=== PATIENT | female | born 1940 | race Caucasian/White ===

== ENCOUNTER → 2020-03-07 | Outpatient (CLI) | payer MEDICARE ==
--- NOTE | 2020-03-07 12:15 | BD ---
EXAMINATION TYPE: Axial Bone Density DATE OF EXAM: 03/07/2020 COMPARISON: 12.13.2013 CLINICAL HISTORY: 79 YR OLD FEMALE....ICD-10 CODE; Z78.0 ASYMPTOMATIC MENOPAUSE Height: 59.3 Weight: 179 FRAX RISK QUESTIONS: NOTHING TO NOTE HERE RISK FACTORS HISTORY OF: Postmenopausal woman: YES AT ABOUT 54 YRS OLD Lost more than 2 inches in height since high school: YES Hyperparathyroidism: NO Adrenal Insufficiency: NO MEDICATIONS: Additional Medications: BP MEDS, CHOLESTEROL MEDS, Additional History: HYPERTENSION, CHOLESTEROL EXAM MEASUREMENTS: Bone mineral densitometry was performed using the [employer] System. Bone mineral density as measured about the Lumbar spine is: ----- L1-L4(G/cm2): 1.283 T Score Values are as follows: ----- L1: 0.2 ----- L2: 0.7 ----- L3: 1.6 ----- L4: 0.7 ----- L1-L4: 0.9 Bone mineral density has: Increased 11.1% since study of: 12.13.2013 Bone mineral density about the R hip (g/cm2): 0.978 Bone mineral density about the L hip (g/cm2): 0.880 T Score values are as follows: -----R Neck: -1.3 -----L Neck: -1.7 -----R Total: -0.2 -----L Total: -1.0 Bone mineral density has: Decreased -4.9% since study of: 12.13.2013 FRAX%s: THERE IS A 12.4% CHANCE FOR A MAJOR OSTEOPOROTIC FX AND A 2.9% FOR HIP.....PROBABILITY FOR FX IN 10 YRS TIME IMPRESSION: Osteopenia (T Score between -2.5 and -1). There is slightly increased risk of fracture and the patient may be considered for treatment. Re-Screen 2-5 years. NOTE: T-SCORE=SD OF THE YOUNG ADULT MEAN.
== END | disposition home or self-care (01) ==
LOC: RADBDWWP 08:49
PROVIDERS: ATTEND Family Medicine
DX: M85.80 Other specified disorders of bone density and structure, unspecified site (principal); Z78.0 Asymptomatic menopausal state
CPT/HCPCS: 77080

== ENCOUNTER → 2020-10-08 | Outpatient (CLI) | payer MEDICARE ==
--- NOTE | 2020-10-08 12:02 | CONS ---
CONSULTATION DATE OF SERVICE: 10/08/2020. This is a 80-year-old lady has been evaluated in Sleep Center for possible obstructive sleep apnea-hypopnea syndrome. HISTORY OF PRESENT ILLNESS/SLEEP-WAKE EVALUATION: Patient's usual sleep schedule from 11 p.m. to 6:30 to 7 a.m. Sometimes she may have difficulties to falling asleep, but usually she falls asleep pretty well. No TV in bedroom. She sleeps on the side position. According to her , she snores and she wakes up from sleep once with nocturia. During the day, the patient occasionally takes naps usually in afternoon time, feels refreshed after nap. No vivid dreams during nap. She takes 2 caffeinated beverages during the day. No history of hypnagogic hallucinations, sleep paralysis or cataplexy. [place] Sleepiness Scale is 2, although again patient takes naps occasionally. PAST MEDICAL HISTORY: Positive for hypertension, diabetes mellitus, hyperlipidemia. PAST SURGICAL HISTORY: Bilateral surgery for cataract, surgery of right hand for Dupuytren problem. MEDICATIONS: Lisinopril 5 mg once a day, amlodipine 10 mg once a day, atorvastatin 10 mg once a day, hydralazine 10 mg once a day, Invokana 300 mg half tablet, aspirin 81 mg once a day. SOCIAL HISTORY: Negative for smoking or using alcohol. FAMILY HISTORY: Positive for hypertension. REVIEW OF SYSTEMS: Snoring, awakenings from sleep. PHYSICAL EXAMINATION: GENERAL: lady without distress. VITAL SIGNS: BP 171/72, HR 56, RR 14, height 5 feet 1 inch, weight 178.8 pounds, body mass index 33, temperature 98.1, oxygen saturation at room air 98%. HEENT: PERRLA, EOMI. Oropharynx low position of soft palate, Mallampati 3-4. NECK: Neck is wide; 16 inches in circumference. LUNGS: Clear to percussion and to auscultation. Good air exchange. No wheezing or rhonchi. HEART: S1, S2 regular. No murmurs, gallops, or rubs. ABDOMEN: Soft and nontender. Bowel sounds are present. No organomegaly appreciated. EXTREMITIES: No clubbing or cyanosis. POT ANNEALER: Awake, alert, and oriented X3. Cranial nerves 2 to 7 intact. There is no fasciculation or atrophy. noted. No focal deficits observed. IMPRESSION: 1. Snoring awakenings from sleep with nocturia. Low position of soft palate. Mallampati of 3. Wide neck, 16 inches in circumference. The patient takes occasional naps. Obstructive sleep apnea-hypopnea syndrome. 2. Hypertension. The patient is on treatment with 3 medications. Blood pressure in the office today increased. 3. Hyperlipidemia. 4. Diabetes mellitus. 5. Status post bilateral cataract surgery. 6. Status post right hand surgery for Dupuytren contracture. PLAN: 1. Polysomnography for evaluation of patient's breathing during sleep. 2. CPAP/BiPAP titration if sleep study confirms obstructive sleep apnea-hypopnea syndrome. 3. Preferable position during sleep on the side. 4. No driving if patient feels any sleepiness. 5. I will see patient for follow up visit to explain results of testing and following plan. Thank you very much for referring this patient for consultation Sincerely, Matty Mayberry MD, PhD, FAASM Diplomat of [employer] [place] [employer] [facility] [place] MMODL / IJN: [id number] /
== END ==
LOC: SLEEP 10:07
PROVIDERS: ATTEND Internal Medicine
DX: G47.33 Obstructive sleep apnea (adult) (pediatric) (principal); R06.83 Snoring; R35.1 Nocturia; I10 Essential (primary) hypertension; E78.5 Hyperlipidemia, unspecified; E11.9 Type 2 diabetes mellitus without complications; Z98.41 Cataract extraction status, right eye; Z98.42 Cataract extraction status, left eye
CPT/HCPCS: 99202

== ENCOUNTER → 2020-10-16 | Outpatient (CLI) | payer MEDICARE ==
[2020-10-16 20:24] LABS: Basophils # (A) 0.02 X 10*3/uL (0.00-0.10); Basophils % (A) 0.4 %; Eosinophils # (A) 0.04 X 10*3/uL (0.04-0.35); Eosinophils % (A) 0.7 %; HCT 46.5 % (37.2-46.3); Lymphocytes # (A) 2.02 X 10*3/uL (0.90-5.00); Lymphocytes % (A) 37.7 %; MCH 29.4 pg (27.0-32.0); MCHC 32.3 g/dL (32.0-37.0); MCV 91.2 fL (80.0-97.0); Mean Platelet Volume 11.4 fL (9.5-12.2); Monocytes # (A) 0.43 X 10*3/uL (0.20-1.00); Neutrophils # (A) 2.84 X 10*3/uL (1.80-7.70); Platelet Count 166 X 10*3/uL (140-440); RDW 14.2 % (11.5-14.5); WBC 5.36 X 10*3/uL (4.50-10.00)
[2020-10-17 16:37] LABS: T4, Free (Free Thyroxine) 0.9 ng/dL (0.80-1.80)
[2020-10-17 17:07] LABS: African American GFR (CKD) 62.5 (60.0-200.0); Albumin 4.5 g/dL (3.80-4.90); Albumin/Globulin Ratio 1.67 (1.60-3.17); Anion Gap 15.5 mmol/L (4.00-12.00); Calcium 9.7 mg/dL (8.7-10.3); Carbon Dioxide 19.5 mmol/L (21.6-31.8); Globulin 2.7 g/dL (1.6-3.3); Non-African American GFR(CKD) 53.9 (60.0-200.0); Potassium 4.6 mmol/L (3.5-5.5); Total Bilirubin 0.6 mg/dL (0.3-1.2); Total Protein 7.2 g/dL (6.2-8.2)
== END | disposition home or self-care (01) ==
LOC: LABWHC1 10:07
PROVIDERS: ATTEND Physician Assistant
DX: E03.9 Hypothyroidism, unspecified (principal); R41.3 Other amnesia
CPT/HCPCS: 36415; 80053; 82306; 82607; 84207; 84439; 84443; 84481; 85025

== ENCOUNTER → 2020-10-21 | Outpatient (CLI) | payer MEDICARE ==
[2020-10-21 12:12] LABS: Chol/HDL Ratio 2.79; LDL Cholesterol,Calculated 58.6 mg/dL (0.0-131.0); VLDL Calculation 16.4 mg/dL (5.00-40.00)
== END | disposition home or self-care (01) ==
LOC: LABWHC1 07:17
PROVIDERS: ATTEND Internal Medicine Interventional Cardiology
DX: E78.2 Mixed hyperlipidemia (principal)
CPT/HCPCS: 36415; 80061; 84450; 84460

== ENCOUNTER → 2021-02-11 | Outpatient (CLI) | payer MEDICARE ==
--- NOTE | 2021-02-11 19:47 | SFUN ---
SLEEP CENTER FOLLOW UP NOTE DATE OF SERVICE: 02/11/2021 This 80-year-old lady has been followed in Sleep Center for treatment of obstructive sleep apnea-hypopnea syndrome. Recently the patient had a home sleep apnea test which showed that the patient has obstructive sleep apnea. Then she had CPAP titration. Today is her first visit after she was started on treatment with CPAP. The patient has difficulties with the machine related to the pressure. She is using a full-face mask. [place] Sleepiness Scale today is 5. I checked her CPAP unit. Pressure is 9 cm of water. Usage is 18/20 nights and 13/20 nights for more than 4 hours with average 4.5 hours per night. Leak is 8 L/minute, which is in normal range. Apnea-hypopnea index is 2.7. RAMP is off and EPR off. MEDICATIONS: 1. Lisinopril 5 mg once a day. 2. Amlodipine 10 mg once a day. 3. Atorvastatin 10 mg once a day. 4. Hydralazine 10 mg once a day. 5. Aspirin 81 mg. 6. Invokana half tablet once a day. PHYSICAL EXAMINATION: GENERAL: Pleasant patient in no distress. VITAL SIGNS: BP 163/84, HR 63, RR 12, height 5 feet inches, weight 177 pounds. Body mass index 34.1, temperature 96.3, oxygen saturation at room air 97%. HEENT: PERRLA, EOMI, evaluation of oropharynx showed tongue protrudes midline. NECK: Supple, no JVD. Thyroid is not palpable. LUNGS: Clear to percussion and to auscultation. Good air exchange. No wheezing or rhonchi. HEART: S1, S2 regular. No murmurs, gallops, or rubs. ABDOMEN: Slightly obese. EXTREMITIES: No clubbing or cyanosis. [employer]: Awake, alert, and oriented X3. Cranial nerves 2 to 7 intact. There is no fasciculation or atrophy. noted. No focal deficits observed. IMPRESSION: 1. Obstructive sleep apnea-hypopnea syndrome. The patient has difficulties with CPAP secondary to feeling that the pressure is too high. 2. hypoxemia during the diagnostic sleep study; normalization of oxygen during titration. 3. Hypertension. 4. Hyperlipidemia. 5. Diabetes mellitus. 6. Status post bilateral cataract surgery. 7. Status post right hand surgery for Dupuytren contracture. PLAN: 1. I increased RAMP to 40 minutes. 2. EPR to 3. 3. I changed regimen of the machine to automatic with range of the pressure 4 to maximal 8. 4. Sleep hygiene with regular time in bed for 8 hours. 5. No driving if feeling sleepiness. 6. Follow-up visit in 1-2 months to re-evaluate patient's compliance with treatment and to make any necessary adjustments. Thank you very much for allowing me to participate in the management of your patient. Sincerely, Matty Mayberry MD, PhD, FAASM Diplomat of [place] [employer] Sleep Medicine Board of [place] [employer] [facility] [place] MMODL / IJN: [id number] /
== END ==
LOC: SLEEP 10:38
PROVIDERS: ATTEND Internal Medicine
DX: G47.33 Obstructive sleep apnea (adult) (pediatric) (principal); R09.02 Hypoxemia; I10 Essential (primary) hypertension; E78.5 Hyperlipidemia, unspecified; E11.9 Type 2 diabetes mellitus without complications; Z98.890 Other specified postprocedural states; Z98.41 Cataract extraction status, right eye; Z98.42 Cataract extraction status, left eye; Z99.89 Dependence on other enabling machines and devices; Z88.0 Allergy status to penicillin